=== PATIENT | female | born 2000 ===

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

== ENCOUNTER 2024-10-10 02:53 | Outpatient (CLI) | payer OTHER, MEDICARE ==
[2024-10-10 05:00] VITALS: BP 100/56; PULSE 69; RESP 16; TEMP 97.3
--- NOTE | 2024-11-05 11:18 | P.MSEPDOC ---
Presenting Problems - Arrival Data Date of Arrival on Unit: 10/10/24 Time of Arrival on Unit: 02:53 Mode of Transport: Ambulatory - Complaint OB-Reason for Admission/Chief Complaint: Possible Onset of Labor Comment: Patient presents to [facility] for contractions Medical History - Information : 4 Para: 1 Term: 1 : 0 Abortions: Spontaneous or Elective: 0 Number of Living Children: 1 - Gestational Age Gestational Age by LORELEI (wks/days): 38 Weeks and 4 Days Review of Systems - Review of Systems Constitutional: No problems Breast: No problems ENT: No problems Cardiovascular: No problems Respiratory: No problems Gastrointestinal: No problems Genitourinary: No problems Musculoskeletal: No problems Neurological: No problems Skin: No problems Vital Signs - Temperature Temperature: 97.3 F Temperature Source: Temporal Artery Scan - Pulse Pulse Oximetery Pulse Rate: 69 Pulse Assessment Method: Pulse Oximetry - Respirations Respiratory Rate: 16 Oxygen Delivery Method: Room Air O2 Sat by Pulse Oximetry: 98 - Blood Pressure Right Arm Blood Pressure: 100/56 Blood Pressure Mean: 70 Blood Pressure Source: Automatic Cuff Physician Notification - Physician Notified Physician Notified Date: 10/10/24 Physician Notified Time: 04:08 Physician: Jose Salazar Maternal Triage Index - Maternal Triage Index Presenting for scheduled procedure w/no complaint: No - Stat/Priority 1 Stat Priority 1: No - Urgent/Priority 2 Urgent Priority 2: No - Prompt/Priority 3 Prompt Priority 3: No - Non-Urgent/Priority 4 Non-Urgent Priority 4: Yes Criteria Met for Priority 4: Patient presents to [facility] for contractions Disposition - Disposition OB Disposition: Discharge to home Discharge Date: 10/10/24 Discharge Time: 04:24 I agree with the RN Medical Screening Exam: Yes Physician's MSE Comment: I have neither seen nor examined the patient. Case reviewed; plan agreed upon as documented in EMR&OBIX.: Yes Diagnosis: RELATED CONDITIONS, UNSPECIFIED, THIRD TRIMESTER
== END 2024-10-10 05:00 ==
LOC: FBPOP 02:53
PROVIDERS: ATTEND Obstetrics & Gynecology
DX: O26.893 Other specified pregnancy related conditions, third trimester (principal); Z3A.38 38 weeks gestation of pregnancy
CPT/HCPCS: 59025; G0463; 99213

== ENCOUNTER 2024-10-19 06:00 | Inpatient (IN) | payer MEDICARE, OTHER ==
[2024-10-19] MEDS: OXYTOCIN 30 UNITS/500 ML NS 30 UNIT in SALINE 1 500ML.BAG IV SCH (06:45)
[2024-10-19] MEDS: LACTATED RINGERS 1,000 ML IV SCH (06:45)
[2024-10-19] MEDS ORDERED: CARBOPROST TROMETHAMINE 250 MCG/ML 1 ML AMP IM PRN (06:52)
[2024-10-19] MEDS ORDERED: METHYLERGONOVINE 0.2 MG/ML 1 ML AMP IM PRN (06:52)
[2024-10-19] MEDS ORDERED: TERBUTALINE 1 MG/ML VIAL SQ PRN (06:52)
[2024-10-19] MEDS ORDERED: TRANEXAMIC 1,000 MG/100ML-NACL 1,000 MG in EMPTY BAG 1 BAG IV PRN (06:52)
[2024-10-19] MEDS ORDERED: OXYTOCIN 10 UNIT/ML 1 ML VIAL IM PRN (06:52)
[2024-10-19] MEDS ORDERED: miSOPROStoL 200 MCG TAB RECTAL PRN (06:52)
[2024-10-19] MEDS ORDERED: miSOPROStoL 200 MCG TAB PO PRN (06:52)
[2024-10-19] MEDS ORDERED: LIDOCAINE 0.5% (PF) 5 MG/ML (50 ML SDV) SQ PRN (06:52)
[2024-10-19 08:08] LABS: Basophils # (A) 0.01 10*3/uL (0.00-0.10); Basophils % (A) 0.1 %; Eosinophils # (A) 0.12 10*3/uL (0.04-0.35); Eosinophils % (A) 1.3 %; HCT 36.1 % (37.2-46.3); HGB 12.5 g/dL (12.0-15.0); Lymphocytes # (A) 1.74 10*3/uL (0.90-5.00); Lymphocytes % (A) 18.6 %; MCH 30.9 pg (27.0-32.0); MCHC 34.6 g/dL (32.0-37.0); MCV 89.4 fL (80.0-97.0); Mean Platelet Volume 10.4 fL (9.5-12.2); Monocytes # (A) 0.66 10*3/uL (0.20-1.00); Monocytes % (A) 7.1 %; Neutrophils # (A) 6.78 10*3/uL (1.80-7.70); Neutrophils % (A) 72.6 %; Platelet Count 316 10*3/uL (140-440); RBC 4.04 10*6/uL (4.10-5.20); RDW 13.5 % (11.5-14.5); WBC 9.34 10*3/uL (4.50-10.00)
--- NOTE | 2024-10-19 09:13 | P.HPOB ---
History of Present Illness H&P Date: 10/19/24 Patient is a 24-year-old at 39-6/7 weeks presenting for elective induction of labor. LORELEI 10/20/2024 by 10 week US. EFW 44% for gestational age based off 35-5/7 week US. She has received routine care. has been uncomplicated. She reports good movement. Pertinent labs: Blood type A positive, antibody screen negative, GBS negative, rubella immune, RPR nonreactive, HepBsAg negative, Hep C nonreactive, HIV negative, gonorrhea negative, chlamydia negative, 1-hour GTT WNL Review of Systems Constitutional: Denies chills, Denies fever Cardiovascular: Denies chest pain, Denies shortness of breath Genitourinary: Reports , Denies abnormal vaginal bleeding Past Medical History Past Medical History: No Reported History Additional Past Medical History / Comment(s): Obstetrics history: First was a spontaneous . This is her second and she had care with me since about 24 weeks gestation. Anatomy ultrasound was done at this time. Blood type is A+, antibodies negative, rubella immune, hepatitis B negative, HIV nonreactive, normal 1 hour glucose tolerance test. GBS negative. History of Any Multi-Drug Resistant Organisms: None Reported Past Surgical History: No Surgical Hx Reported Past Anesthesia/Blood Transfusion Reactions: No Reported Reaction Smoking Status: Never smoker - Past Family History Mother Family Medical History: No Reported History Medications and Allergies Home Medications Medication Instructions Recorded Confirmed Type Vit No.179/Iron/Folic 1 tab PO DAILY 10/10/24 10/19/24 History [ Tablet] Allergies Allergy/AdvReac Type Severity Reaction Status Date / Time No Known Allergies Allergy Verified 10/19/24 06:51 Exam Osteopathic Statement: *. No significant issues noted on an osteopathic structural exam other than those noted in the History and Physical/Consult. Intake and Output 10/18/24 10/19/24 10/19/24 22:59 06:59 14:59 Other: Weight 106.141 kg Vital signs are stable. General: No acute distress. Alert and oriented. Lungs: Nonlabored breathing. Abdomen: Gravid and appropriate for gestational age. Cervix: 1/50/-2 per attending during AROM. Extremities: Symmetric movement. Category 1 heart tones. Results Result Diagrams: 10/19/24 06:45 Assessment and Plan Assessment: Patient is a 24-year-old female at 39-6/7 weeks presenting for [elective induction of labor]. (1) Encounter for induction of labor Current Visit: Yes Status: Acute Code(s): Z34.90 - ENCNTR FOR SUPRVSN OF NORMAL , UNSP, UNSP TRIMESTER SNOMED Code(s): 433977278 (2) Term Current Visit: Yes Status: Acute Code(s): Z34.90 - ENCNTR FOR SUPRVSN OF NORMAL , UNSP, UNSP TRIMESTER SNOMED Code(s): 40488627 Plan: - Proceed with induction of labor today - Pitocin per protocol - AROM performed - Continuous EFM and tocometer - Clear liquid diet - Epidural analgesia if desired - Anticipate spontaneous vaginal delivery pt seen and examined independently of Dr Randolph, agree with above plan. case reviewed in detail
[2024-10-19] MEDS: NALBUPHINE 10 MG/ML (10 ML MDV) IV PRN (11:12)
[2024-10-19] MEDS ORDERED: SODIUM CHLORIDE 0.9% 250 ML BAG ONE (16:54)
[2024-10-19] MEDS ORDERED: ROPIVACAINE 5 MG/ML 30 ML VIAL ONE (16:54)
[2024-10-19] MEDS ORDERED: fentaNYL (PF) 50 MCG/ML 5 ML AMP ONE (16:54)
[2024-10-19] MEDS ORDERED: SIMETHICONE 80 MG CHEWABLE PO PRN (19:41)
[2024-10-19] MEDS ORDERED: ZOLPIDEM 5 MG TAB PO PRN (19:41)
[2024-10-19] MEDS ORDERED: LANOLIN CREAM 1 GM TUBE TOPICAL PRN (19:41)
[2024-10-19] MEDS ORDERED: diphenhydrAMINE 50 MG CAP PO PRN (19:41)
[2024-10-19] MEDS ORDERED: diphenhydrAMINE 50 MG/ML 1 ML VIAL IVP PRN ×2 (19:41)
[2024-10-19] MEDS ORDERED: HYDROCORTISONE 2.5% RECTAL CREAM 30 GM TUBE RECTAL PRN (19:41)
[2024-10-19] MEDS ORDERED: diphenhydrAMINE 25 MG CAP PO PRN (19:41)
--- NOTE | 2024-10-19 19:44 | P.PROBDLV ---
Vaginal Delivery Note - . Vaginal Delivery Note: Date of service 10/19/2024 Findings: viable male infant delivered at 1933, weight is pending 24-year-old 2 para 1 at 39+ weeks presents for induction of labor. Patient was admitted to labor and delivery and Pitocin induction of labor has begun. Amniotomy was performed and clear fluid was obtained. Patient made progress to labor eventually coming uncomfortable and requesting epidural. Epidural was placed without difficulty by the anesthesia department. Patient made good progress toward complete dilation. Once completely dilated patient began pushing and had a normal spontaneous vaginal delivery of a viable male at 1933, Apgars of 9 and 9 at 1 and 5 minutes respectively. Weight is currently pending. After 2-minute delay the umbilical cord is doubly clamped and cut, placenta was delivered spontaneously with three-vessel cord being noted. On inspection the patient's vaginal vault no lacerations were appreciated. Uterus was noted to be firm below the umbilicus. Estimated blood loss 200 cc Patient and infant tolerated delivery well and are resting comfortable
[2024-10-19] MEDS: BENZOCAINE/MENTHOL SPRAY 1 GM/SPRAY AEROSOL TOPICAL PRN (19:54)
[2024-10-19] MEDS: SENNOSIDES-DOCUSATE SODIUM 1 EACH TAB PO SCH (21:41)
[2024-10-19] MEDS: IBUPROFEN 800 MG TAB PO SCH (21:41)
[2024-10-20] MEDS: ACETAMINOPHEN TAB 500 MG TAB PO SCH (05:04)
[2024-10-20] MEDS: PRENATAL VIT-IRON-FOLIC ACID 1 EACH TABLET PO SCH (08:32)
--- NOTE | 2024-10-20 09:31 | P.DS ---
Providers Date of admission: 10/19/24 06:00 Expected date of discharge: 10/20/24 Attending physician: Aileen Paredes Primary care physician: Stated None - Discharge Diagnosis(es) (1) Encounter for induction of labor Current Visit: Yes Status: Acute (2) Term Current Visit: Yes Status: Acute Hospital Course: Patient is a 24-year-old admitted at 396/7 weeks for elective induction of labor. has been uncomplicated. Labor progressed without complication. Group B strep was negative. Patient was completely dilated at 1930 and infant was delivered at 1933. A healthy male infant was delivered with Apgars 9 and 9 and a birthweight of 3150 g (6 pounds 15 ounces). The placenta was delivered intact and EBL 100 mL. There was no laceration noted. Uterus involution appropriate. course was unremarkable. Patient was afebrile, hemodynamically stable, ambulating independently, and voiding without difficulty. Lochia was apppropriate. Patient is bottlefeeding. Pain was well- controlled with Tylenol and Motrin. remained stable and is being discharged with the patient. Physical examination: Vital signs reviewed General: Nontoxic, no distress, appears stated age, well-appearing Lungs: Symmetric chest wall expansion, nonlabored breathing on room air Extremities: Normal, without pitting edema Uterus: Normal, firm, below umbilicus pt seen independently of Dr. Randolph agree with above documentation. Patient desires discharge home later today. Discharge instructions are reviewed with patient Patient has routine follow-up scheduled in 6 weeks. Patient Condition at Discharge: Good Plan - Discharge Summary New Discharge Prescriptions: No Action Vit No.179/Iron/Folic [ Tablet] 1 tab PO DAILY Discharge Medication List Vit No.179/Iron/Folic [ Tablet] 1 tab PO DAILY 10/10/24 [History] Follow up Appointment(s)/Referral(s): Aileen Paredes DO [Doctor of Osteopathic Medicine] - 11/30/24 2:00 pm Patient Instructions/Handouts: Vaginal Delivery (DC) Activity/Diet/Wound Care/Special Instructions: Please avoid intercourse, tub baths, and swimming in pools/lakes/oceans/hot tubs for 6 weeks. Your pain can be treated with ibuprofen and acetaminophen. You can take up to 400-600 mg of ibuprofen (Advil, Motrin) 3 times daily (every 8 hours). Do not combine either with ketorolac (Toradol), meloxicam (Mobic), or indomethacin (Tivorbex). Some people can develop stomach discomfort with higher doses of either ibuprofen or naproxen, if this develops decrease your dose or stop taking it. If you need to take this dose daily for more than a week, please schedule an appointment for re-evaluation with your PCP/OBGYN. Please take these medications with food. You can take up to 1000 mg of acetaminophen (Tylenol) every 6 hours. Be careful as this is included in some medicines like Nyquil, [place], Percocet, Vicodin, STANBACK, Goody's Powders, and Excedrin. Discharge Disposition: HOME SELF-CARE
[2024-10-20 13:51] VITALS: RESP 18
[2024-10-20 16:00] VITALS: BP 117/78; PULSE 82; TEMP 97.6
== END 2024-10-20 20:21 | disposition home or self-care (01) | DRG 560 ==
LOC: 4FBP 06:00
PROVIDERS: ADMIT Obstetrics & Gynecology Obstetrics; ATTEND Obstetrics & Gynecology Obstetrics
PROC: 10E0XZZ Delivery of Products of Conception, External Approach (ICD-10-PCS; principal; 2024-10-19)
PROC: 3E033VJ Introduction of Other Hormone into Peripheral Vein, Percutaneous Approach (ICD-10-PCS; principal; 2024-10-19)
DX: O80 Encounter for full-term uncomplicated delivery (principal); Z37.0 Single live birth; Z3A.39 39 weeks gestation of pregnancy
CPT/HCPCS: 85025; 86850; 86900; 86901